=== PATIENT | female | born 1995 | race African-American/Black ===

== ENCOUNTER 2022-11-27 14:40 | Inpatient (IN) | payer OTHER ==
[2022-11-27] MEDS: ELECTROLYTE-148 SOLN 1,000 ML IV SCH ×2 (15:45→19:45)
[2022-11-27] MEDS ORDERED: OXYTOCIN 30 UNITS in 0.9% NS 30 UNIT/500 ML INFUS.BAG IVPB SCH (16:30)
[2022-11-27 16:39] VITALS: BMI 29.2
[2022-11-27 17:01] LABS: BASO % 0.7 % (0-2.0); EOS % 0.4 % (0-4.5); HEMATOCRIT 38.3 % (32.4-45.2); HEMOGLOBIN 12.7 GM/dL (10.7-15.3); LYMPH % 20.1 % (8-40); MCH 28.3 pg (25.7-33.7); MCHC 33.1 g/dl (32.0-36.0); MEAN CELL VOLUME 85.7 fl (80-96); MEAN PLT VOLUME 9.9 fl (7.5-11.1); MONO % 5.5 % (3.8-10.2); NEUT % 73.3 % (42.8-82.8); PLATELET COUNT 197 10^3/uL (134-434); RBC 4.48 M/mm3 (3.60-5.2); RDW 15.6 % (11.6-15.6); WHITE BLOOD COUNT 8.5 K/mm3 (4.0-10.0)
[2022-11-27] MEDS ORDERED: OXYTOCIN 30 UNITS in 0.9% NS 30 UNIT/500 ML INFUS.BAG IVPB ONE (17:08)
[2022-11-27 17:10] LABS: INR 0.99 (0.83-1.09); PROTHROMBIN TIME (PATIENT) 11.5 SEC (9.7-13.0)
[2022-11-27 17:13] LABS: ACTIVATED PTT 27.8 SECONDS (25.2-36.5)
[2022-11-27 17:44] LABS: POTASSIUM 4.1 mmol/L (3.5-5.1)
[2022-11-27 17:46] LABS: CALCIUM 8.8 mg/dL (8.5-10.1)
[2022-11-27 17:47] LABS: BLOOD UREA NITROGEN 7.4 mg/dL (7-18)
[2022-11-27 17:50] LABS: CREATININE 0.6 mg/dL (0.55-1.3)
[2022-11-27] MEDS ORDERED: FENTANYL/BUPIVACAINE/NS/PF - PCEA - 50 ML DISP.SYRIN EP ONE (18:37)
[2022-11-27] MEDS ORDERED: NALOXONE HCL 0.4 MG/ML VIAL IVPUSH PRN (18:43)
[2022-11-27] MEDS ORDERED: FENTANYL CITRATE/PF 50 MCG/ML VIAL ONE (19:05)
[2022-11-27] MEDS: FENTANYL/BUPIVACAINE/NS/PF - PCEA - 50 ML DISP.SYRIN EP SCH (19:25)
[2022-11-27] MEDS ORDERED: OXYTOCIN 20 UNITS in 0.9% NS 20 UNIT/1,000 ML INFUS.BAG IV ONE (20:50)
[2022-11-27 21:53] LABS: CORD BASE EXCESS -3.6 mmol/L (0-2); CORD HCO3 21.6 mmHg (20-29); CORD PCO2 39.7 mmHg (30-78); CORD pH 7.354 (7.14-7.44)
[2022-11-27] MEDS ORDERED: BENZOCAINE 28 GM HEMORRHOIDAL OINTMENT TP PRN (22:00)
[2022-11-27] MEDS ORDERED: oxyCODONE HCL 5 MG TABLET PO PRN (22:00)
[2022-11-27] MEDS ORDERED: ACETAMINOPHEN 325 MG TABLET (FP) PO PRN (22:00)
[2022-11-27] MEDS ORDERED: BENZOCAINE 20% 57 GM BOTTLE TP PRN (22:00)
[2022-11-27] MEDS ORDERED: OXYTOCIN 20 UNITS in 0.9% NS 20 UNIT/1,000 ML INFUS.BAG IV SCH (22:00)
[2022-11-27] MEDS ORDERED: BISACODYL 10 MG SUPP.RECT RC PRN (22:00)
[2022-11-27] MEDS ORDERED: WITCH HAZEL 50% (TUCKS) 40 PAD/JAR PAD TP PRN (22:00)
[2022-11-27 23:11] LABS: CORD BASE EXCESS -3.7 mmol/L (0-2); CORD HCO3 21.6 mmHg (20-29); CORD PCO2 39.7 mmHg (30-78); CORD pH 7.353 (7.14-7.44)
[2022-11-28] MEDS ORDERED: IBUPROFEN 600 MG TABLET (FP) PO ONE (00:12)
[2022-11-28] MEDS: IBUPROFEN 600 MG TABLET (FP) PO PRN ×2 (00:15→21:15)
[2022-11-28] MEDS: METHYLERGONOVINE MALEATE 0.2 MG/1 ML AMP IM PRN ×2 (00:52→04:16)
[2022-11-28 04:40] LABS: BASO % 0.7 % (0-2.0); EOS % 0.2 % (0-4.5); HEMATOCRIT 40.4 % (32.4-45.2); HEMOGLOBIN 13.3 GM/dL (10.7-15.3); LYMPH % 14.2 % (8-40); MCH 28.1 pg (25.7-33.7); MCHC 32.9 g/dl (32.0-36.0); MEAN CELL VOLUME 85.4 fl (80-96); MONO % 8.2 % (3.8-10.2); NEUT % 76.7 % (42.8-82.8); PLATELET COUNT 190 10^3/uL (134-434); RBC 4.72 M/mm3 (3.60-5.2); RDW 15.9 % (11.6-15.6); WHITE BLOOD COUNT 12.5 K/mm3 (4.0-10.0)
[2022-11-28 08:12] LABS: BASO % 0.6 % (0-2.0); EOS % 0.3 % (0-4.5); HEMATOCRIT 40.5 % (32.4-45.2); HEMOGLOBIN 13.3 GM/dL (10.7-15.3); LYMPH % 17.8 % (8-40); MCH 28.2 pg (25.7-33.7); MCHC 32.8 g/dl (32.0-36.0); MONO % 7.2 % (3.8-10.2); NEUT % 74.1 % (42.8-82.8); PLATELET COUNT 186 10^3/uL (134-434); RBC 4.71 M/mm3 (3.60-5.2); RDW 16.4 % (11.6-15.6); WHITE BLOOD COUNT 13.2 K/mm3 (4.0-10.0)
[2022-11-28] MEDS: PRENATAL VITAMINS W/ FOLIC ACID TABLET (FP) PO SCH (09:38)
[2022-11-28 13:59] LABS: POC NITRAZINE POS
[2022-11-28] MEDS ORDERED: SENNOSIDES/DOCUSATE COMBO (SENNA PLUS) TABLET (UD) PO PRN (22:00)
[2022-11-29] MEDS: PRENATAL VITAMINS W/ FOLIC ACID TABLET (FP) PO SCH (09:16)
[2022-11-29] MEDS: IBUPROFEN 600 MG TABLET (FP) PO PRN ×2 (09:16→18:11)
[2022-11-29 10:29] VITALS: BP 105/71; PULSE 71; RESP 16; TEMP 98.6
[2022-11-29] MEDS: FENTANYL/BUPIVACAINE/NS/PF - PCEA - 50 ML DISP.SYRIN EP SCH ×2 (19:06→19:09)
[2022-11-29] MEDS: ELECTROLYTE-148 SOLN 1,000 ML IV SCH ×2 (19:10→19:12)
== END 2022-11-29 20:10 | disposition home or self-care (01) | DRG 807 ==
LOC: JDEL 14:40 → JLDR 15:20 → J3W 23:46
PROVIDERS: ADMIT Obstetrics & Gynecology; ATTEND Obstetrics & Gynecology
PROC: 10E0XZZ Delivery of Products of Conception, External Approach (ICD-10-PCS; principal; 2022-11-27)
PROC: 0W8NXZZ Division of Female Perineum, External Approach (ICD-10-PCS; 2022-11-27)
DX: O80 Encounter for full-term uncomplicated delivery (principal); Z37.0 Single live birth; Z3A.38 38 weeks gestation of pregnancy
CPT/HCPCS: 36415; 36600; 80048; 82803; 83986-QW; 85025; 85610; 85730; 86780; 86850; 86900; 86901